=== PATIENT | female | born 1990 | race Caucasian/White ===

== ENCOUNTER → 2017-11-22 | Emergency (ER) | payer OTHER ==
[~2017-11-22] VITALS: Ht 322.6 cm; Wt 64.9 kg
== END | disposition home or self-care (01) ==
LOC: ER 19:10
DX: F06.4 Anxiety disorder due to known physiological condition (principal)

== ENCOUNTER 2018-05-24 20:54 | Emergency (ER) | payer OTHER ==
[~2018-05-24] VITALS: Ht 170.2 cm; Wt 73.5 kg
== END 2018-05-25 12:09 | disposition home or self-care (01) ==
LOC: ER 20:54
DX: N39.0 Urinary tract infection, site not specified (principal); R51 Headache